=== PATIENT | female | born 1940 | race Caucasian/White ===

== ENCOUNTER → 2018-03-05 | Outpatient (CLI) | payer MEDICARE, BC | END | disposition home or self-care (01) | LOC: HKI 09:50 | DX: M25.561 Pain in right knee (principal); M23.200 Derangement of unspecified lateral meniscus due to old tear or injury, right knee; I10 Essential (primary) hypertension; I25.2 Old myocardial infarction; E03.9 Hypothyroidism, unspecified; K21.9 Gastro-esophageal reflux disease without esophagitis; Z88.0 Allergy status to penicillin | CPT/HCPCS: G0463 ==

== ENCOUNTER → 2018-04-16 | Outpatient (CLI) | payer MEDICARE, BC | END | disposition home or self-care (01) | LOC: HKI 08:56 | DX: M25.561 Pain in right knee (principal) | CPT/HCPCS: G0463 ==

== ENCOUNTER → 2018-05-14 | Outpatient (CLI) | payer MEDICARE, BC | END | disposition home or self-care (01) | LOC: HKI 10:00 | DX: Z01.818 Encounter for other preprocedural examination (principal); M17.11 Unilateral primary osteoarthritis, right knee | CPT/HCPCS: G0463 ==

== ENCOUNTER 2018-05-24 05:34 | Day surgery (SDC) | payer MEDICARE, BC ==
[2018-05-24] MEDS ORDERED: CLINDAMYCIN 600 MG/D5W (PMX) 50 ML IVPB (06:00)
[2018-05-24] MEDS ORDERED: LACTATED RINGER'S 1,000 ML IV* (06:00)
[2018-05-24] MEDS: ACETAMINOPHEN 1000MG/100ML IV 100 ML IVPB (06:23)
[2018-05-24] MEDS: DEXAMETHASONE 4 MG/ML 1 ML INJ IV (06:23)
[2018-05-24] MEDS ORDERED: METOPROLOL 5 MG INJ (07:00)
[2018-05-24] MEDS ORDERED: ONDANSETRON 4 MG INJ (07:00)
[2018-05-24] MEDS ORDERED: CEFAZOLIN 1 GM INJ (07:00)
[2018-05-24] MEDS ORDERED: DEXAMETHASONE 4 MG/ML 1 ML INJ (07:00)
[2018-05-24] MEDS: LIDOCAINE 1%/EPI 30 ML INJ (07:14)
[2018-05-24] MEDS: BUPIVACAINE 0.25%/EPI (SDV) 30 ML INJ (07:14)
[2018-05-24] MEDS ORDERED: LIDOCAINE 2% (SDV) 5 ML INJ (07:27)
[2018-05-24] MEDS ORDERED: FENTAnyl 50 MCG/ML VIAL (07:27)
[2018-05-24] MEDS ORDERED: PROPOFOL 20 ML (07:27)
[2018-05-24] MEDS ORDERED: METOCLOPRAMIDE 10 MG INJ (07:28)
[2018-05-24] MEDS ORDERED: MIDAZOLAM 1 MG/ML 2 ML INJ (07:28)
[2018-05-24] MEDS ORDERED: DIPHENHYDRAMINE 50 MG INJ IV (07:30)
[2018-05-24] MEDS ORDERED: MEPERIDINE 25 MG INJ IV (07:30)
[2018-05-24] MEDS ORDERED: IPRATROPIUM (NEB) 0.5 MG/2.5 ML AMP HHN (07:30)
[2018-05-24] MEDS ORDERED: ONDANSETRON 4 MG INJ IV ×2 (07:30)
[2018-05-24] MEDS ORDERED: ALBUMIN HUMAN 5% 250 ML IV (07:30)
[2018-05-24] MEDS ORDERED: HYDROCODONE/APAP (5/325) TAB PO (07:30)
[2018-05-24] MEDS ORDERED: hydrALAzine 20 MG INJ IV (07:30)
[2018-05-24] MEDS ORDERED: LABETALOL HCL 20MG INJ IV (07:30)
[2018-05-24] MEDS ORDERED: HYDROmorphONE 1 MG/5 ML IV SYRINGE IV ×2 (07:30)
[2018-05-24] MEDS ORDERED: LEVALBUTEROL (NEB) 1.25 MG/0.5 ML AMP HHN (07:30)
[2018-05-24] MEDS ORDERED: KETOROLAC 30 MG INJ IV (07:30)
[2018-05-24] MEDS ORDERED: FENTAnyl 50 MCG/ML VIAL IV ×2 (07:30)
[2018-05-24] MEDS ORDERED: ROPIVACAINE 0.5 % 30 ML VIAL (08:06)
== END 2018-05-24 10:25 | disposition home or self-care (01) ==
LOC: SDS 05:34
DX: S83.271D Complex tear of lateral meniscus, current injury, right knee, subsequent encounter (principal); X58.XXXD Exposure to other specified factors, subsequent encounter; E78.5 Hyperlipidemia, unspecified; E03.9 Hypothyroidism, unspecified; I10 Essential (primary) hypertension; R73.03 Prediabetes
CPT/HCPCS: 29881

== ENCOUNTER → 2018-06-11 | Outpatient (CLI) | payer MEDICARE, BC | END | disposition home or self-care (01) | LOC: HKI 13:12 | DX: Z47.89 Encounter for other orthopedic aftercare (principal) ==

== ENCOUNTER → 2018-07-09 | Outpatient (CLI) | payer MEDICARE, BC | END | disposition home or self-care (01) | LOC: HKI 08:56 | DX: Z09 Encounter for follow-up examination after completed treatment for conditions other than malignant neoplasm (principal); M25.561 Pain in right knee; Z96.651 Presence of right artificial knee joint; Z88.0 Allergy status to penicillin ==

== ENCOUNTER → 2018-09-17 | Outpatient (CLI) | payer MEDICARE, BC | END | disposition home or self-care (01) | LOC: HKI 08:25 | DX: M17.11 Unilateral primary osteoarthritis, right knee (principal); Z96.651 Presence of right artificial knee joint | CPT/HCPCS: G0463 ==